=== PATIENT | female | born 1980 | race Caucasian/White ===

== ENCOUNTER 2018-04-15 13:36 | Outpatient (CLI) | payer OTHER ==
--- NOTE | 2018-04-15 15:26 | RAD ---
LUMBAR SPINE FOUR VIEWS: History: Back pain. FINDINGS: There are five lumbar type vertebrae. Pedicles are intact. Weightbearing flexion and extension views are included. Vertebral body height and alignment are maintained. No abnormal translational motion up on flexion or extension. IMPRESSION: Normal radiographic appearance of the lumbar spine. POS: [facility]
--- NOTE | 2018-04-15 15:54 | MRI ---
LUMBAR SPINE MRI NONCONTRAST: 04/15/18 INDICATION: Lumbar spondylosis. FINDINGS: The vertebral body heights and disc space heights are preserved. Spinal alignment is maintained. No a cute marrow edema or significant soft tissue edema of the paraspinous regions. There is an intrinsic T1 hyperintensity, rounded in morphology of L4 vertebral body indicating an interosseous hemangioma. There is a lobular shaped T2 hyperintensity adjacent to the posterior aspect of the left L5-S1 facet joint favoring an extraspinal synovial cyst. This measures 11 mm in diameter. L5-S1: No significant central canal or foraminal stenosis. L4-5: No significant central canal or neural foraminal stenosis. L3-4: No significant central canal or neural foraminal stenosis. L2-3: No significant central canal or neural foraminal stenosis. L1-2: There is a small right paracentral disc protrusion which minimally effaces the ventral thecal s ac without compromise of the nerve roots. There is asymmetric prominence of the right neural foramina l contents demonstrating mild increased T2 signal and demonstrating relative T1 isointensity to nerve root signal. IMPRESSION: 1. Prominent right neural foraminal contents of the L1-2 level. This finding is not further radha acterized on the basis of this exam and therefore followup with contrast enhanced lumbar spine MRI is recommended to exclude an enhancing mass. 2. Small disc protrusion of L1-2. POS: [facility]
--- NOTE | 2018-04-15 16:19 | MRI ---
MRI THORACIC SPINE NONCONTRAST: 04/15/18 HISTORY: Back pain. FINDINGS: The spinal cord throughout the cervical levels has a normal appearance without evidence of compressio n, expansion or abnormal signal. The central canal and neural foramina are patent. Disc hydration is maintained. At the far anterior margin of the T3 superior end plate, a small ill-defined area of increased T2 sig nal and decreased T1 signal is present without significant loss of height. Small hemangioma is appare nt within the T8 vertebral body bone marrow on the right. IMPRESSION: 1. No focal disc herniation or nerve root compression. 2. Small focus of bone marrow edema at the T8 superior end plate anteriorly, possibly representi ng a small compression type injury without significant loss of height. POS: [facility]
== END 2018-04-15 13:37 | disposition home or self-care (01) ==
LOC: BICMRI 13:36
PROVIDERS: ATTEND Anesthesiology Pain Medicine
DX: M43.06 Spondylolysis, lumbar region (principal); M51.26 Other intervertebral disc displacement, lumbar region; R60.0 Localized edema
CPT/HCPCS: 72110; 72146; 72148

== ENCOUNTER 2018-04-30 08:53 | Outpatient (CLI) | payer OTHER ==
[2018-04-30] MEDS ORDERED: Gadobenate Dimeglumine 529 MG/1 ML (20ML VIAL) ONE (13:22)
--- NOTE | 2018-04-30 14:58 | MRI ---
LUMBAR SPINE MRI WITH AND WITHOUT CONTRAST: COMPARISON: Reference is made to prior MRI of 04/15/2018. INDICATION: History of lumbar spondylosis. Expansile process of right L1-2 level neural foramen demonstrated on preceding noncontrast MRI. The patient presents for further imaging evaluation. FINDINGS: Redemonstration of expansile process of the right L1-2 level neural foramen. Pre- and postcontrast i maging is performed which does not reveal discernible enhancement and, therefore a perineural cyst is favored as the etiology. 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 As a conservative measure, a followup in 1 year may be obtained to exclude progression in size. POS: [facility]
== END 2018-04-30 08:54 | disposition home or self-care (01) ==
LOC: MRI 08:53
PROVIDERS: ATTEND Anesthesiology Pain Medicine
DX: R22.2 Localized swelling, mass and lump, trunk (principal)
CPT/HCPCS: 72158; A9579

== ENCOUNTER 2018-06-17 08:51 | Outpatient (CLI) | payer OTHER ==
--- NOTE | 2018-06-17 09:47 | RAD ---
FOUR VIEW RIGHT ELBOW: History: Pain. Comparison: None. FINDINGS: No fracture. No cortical irregularity. No periosteal reaction. Joint spaces are preserved. No malalig nment. No joint effusion. In the proximal radial diaphysis, there is a benign appearing periosteal reaction likely due to remot e change/incident. IMPRESSION: 1. No fracture. POS: [facility]
== END 2018-06-17 08:52 | disposition home or self-care (01) ==
LOC: RAD-FRANK 08:51
PROVIDERS: ATTEND Nurse Practitioner Family
DX: M25.521 Pain in right elbow (principal)

== ENCOUNTER 2023-02-05 11:04 | Outpatient (CLI) | payer OTHER | END 2023-02-05 11:05 | disposition home or self-care (01) | LOC: RAD-FRANK 11:04 | PROVIDERS: ATTEND Nurse Practitioner Family | DX: M54.2 Cervicalgia (principal); M47.812 Spondylosis without myelopathy or radiculopathy, cervical region | CPT/HCPCS: 72040 ==